=== PATIENT | female | born 1985 | race Two or more races ===

== ENCOUNTER 2018-06-18 14:15 | Emergency (ER) | payer MEDICAID ==
[~2018-06-18] VITALS: Ht 167.6 cm; Wt 88.0 kg
[2018-06-18 14:22] VITALS: Ht 167.6 cm; Wt 88.0 kg
[2018-06-18 18:50] VITALS: BP 134/82
== END 2018-06-18 18:50 | disposition home or self-care (01) ==
LOC: ED 14:15
DX: S29.011A Strain of muscle and tendon of front wall of thorax, initial encounter (principal); M94.0 Chondrocostal junction syndrome [Tietze]; Z88.0 Allergy status to penicillin; X58.XXXA Exposure to other specified factors, initial encounter; Y93.89 Activity, other specified; Y92.89 Other specified places as the place of occurrence of the external cause; Y99.8 Other external cause status
CPT/HCPCS: 87804